=== PATIENT | male | born 1965 | race Caucasian/White ===

== ENCOUNTER 2022-07-19 13:06 | Emergency (ER) | payer OTHER, SELFPAY ==
--- NOTE | ~2022-07-19 | CT_ITS ---
EXAMINATION: CT HEAD WITHOUT CONTRAST CLINICAL INFORMATION: Severe headache. COMPARISON: None available. TECHNIQUE: Contiguous axial imaging was performed from the skull base to vertex without intravenous administration of contrast. This CT examination was performed using dose optimization techniques as appropriate, variously including the following: *Automated exposure control *Adjustment of mA and/or kV according to patient size (this includes techniques or standardized protocols for targeted exams where dose is matched to indication/reason for exam; i.e. extremities or head) *Use of iterative reconstruction technique DLP: 793 mGy-cm FINDINGS: No intracranial hemorrhage, large infarction, or mass lesion is seen. No extra-axial collection is appreciated. The ventricles are normal in size and configuration without evidence of hydrocephalus. Mucosal thickening involving virtually all paranasal sinuses. Mucosal polyp versus retention cyst involving the left sphenoid sinus. The mastoid air cells are clear. CT/CT head/brain wo IV con IMPRESSION: No acute intracranial finding. Paranasal sinus disease as described.
[2022-07-19 13:10] VITALS: BP 169/95; PULSE 68; RESP 19; TEMP 36.6; O2SAT 98; BMI 33.2
--- NOTE | 2022-07-19 13:12 | ED_ITS ---
HPI - Headache General Chief Complaint: Headache <ANDREIA Lopez - Last Filed: 07/19/22 13:14> Stated Complaint: Severe headache 4days/Stiff neck/Light sensitivit <ANDREIA Lopez - Last Filed: 07/19/22 13:14> Time Seen by Provider: 07/19/22 16:11 <ANDREIA Lopez - Last Filed: 07/19/22 13:14> Source: patient and other (Girlfriend, Odette) <Richard Oreilly MD - Last Fi led: 07/19/22 20:15> Mode of arrival: ambulatory <Richard Oreilly MD - Last Filed: 07/19/22 20:15> Limitations: no limitations <Richard Oreilly MD - Last Filed: 07/19/22 20:15> History of Present Illness HPI Narrative: 57-year-old male who presents emergency department for evaluation of a headache, stiff neck, photophobia and phonophobia x4 days. The patient states that the headache came on gradually 4 days prior. He does not remember what he was doing at the time of onset. He states that the pain became progressively worse and is been a constant, pressure-like pain. He describes as a cap wrapped around his forehead and crown, tightness like sensation. He states that over the past 2 days he has had a stiff neck. The patient has had photophobia and ph onophobia. He states that last night after eating he did developed nausea with no vomiting. He states that he may have had some chills last night. He did become diaphoretic last night as well. Patient states he has been having some difficulty with seasonal allergies over the last month and has been taking Zyrtec and Mucinex. He states that while he was driving yesterday he did become slightly confused which is unusual for him. He denied rhinorrhea, sore throat, cough, chest pain, shortness of breath, dyspnea on exertion, myalgias arthralgias. The patient does not have a history of migraine headaches he states that he rarely gets headaches. <Richard Oreilly MD - Last Filed: 07/19/22 20:15> Related Data Home Medications: Previous Rx's Medication Instructions Recorded metoclopramide HCl 10 mg tablet 10 mg PO Q6H PRN nausea and 07/19/22 (Reglan) vomiting #14 tabs <ANDREIA Lopez - Last Filed: 07/19/22 13:14> Allergies/Adverse Reactions: Allergies Allergy/AdvReac Type Severity Reaction Status Date / Time Iodinated Contrast Media Allergy Shortness Verified 07/19/22 13:10 [IV Contrast Dye] of Breath Sulfa (Sulfonamide Allergy Hives Verified 07/19/22 13:09 Antibiotics) <ANDREIA Lopez - Last Filed: 07/19/22 13:14> Review of Systems Review of Systems: Yes all other systems are reviewed and are negative <Richard Oreilly MD - Last Filed: 07/19/22 20:15> [facility] Past Medical History [facility] Narrative: Past medical history: Restless leg syndrome, depression, seizure 3 years prior while he was having his hip operated on, he states that he had a workup that may have shown some temporal lobe slowing. Osteoarthritis Past surgical history: Bilateral hip replacements. Bilateral meniscus surgeries. Tonsillectomy. 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 He states he currently works for a [email or web address]. He is here with his girlfriend Odette. He denies tobacco, alcohol and drug use. <Richard Oreilly MD - Last Filed: 07/19/22 20:15> Social History Social History: Social History Advance Directives: No Advance Directives Information Provided: No <ANDREIA Lopez - Last Filed: 07/19/22 13:14> Physical Exam Vital Signs: Vital Signs: Last Vital Signs Temp 98.4 F 07/19/22 19:57 Pulse 62 07/19/22 19:57 Resp 16 07/19/22 19:57 BP 140/84 H 07/19/22 19:57 Pulse Ox 98 07/19/22 19:57 O2 Del Method Room Air 07/19/22 19:57 BMI result Body Mass Index 33.2 <ANDREIA Lopez - Last Filed: 07/19/22 13:14> Vital Signs: Last Vital Signs Temp 98.4 F 07/19/22 19:57 Pulse 62 07/19/22 19:57 Resp 16 07/19/22 19:57 BP 140/84 H 07/19/22 19:57 Pulse Ox 98 07/19/22 19:57 O2 Del Method Room Air 07/19/22 19:57 BMI result Body Mass Index 33.2 <Richard Oreilly MD - Last Filed: 07/19/22 20:15> Const: General: cooperative and no acute distress <Richard Oreilly MD - Last Filed: 07/19/22 20:15> Orientation/consciousness: oriented to person and oriented to place <Richard Oreilly MD - Last Filed: 07/19/22 20:15> Limitations: no limitations <Richard Oreilly MD - Last Filed: 07/19/22 20:15> HEENT: Head: Yes normal to inspection, Yes normocephalic and Yes atraumatic <Richard Oreilly MD - Last Filed: 07/19/22 20:15> Ears: external ears normal <Richard Oreilly MD - Last Filed: 07/19/22 20:15> General nose exam: Normal external nose present <Richard Oreilly MD - Last Filed: 07/19/22 20:15> Face and sinus: Yes normal facial exam <Richard Oreilly MD - Last Filed: 07/19/22 20:15> Mouth: Normal oral and palatal mucosa present <Richard Oreilly MD - Last Filed: 07/19/22 20:15> Throat: Yes posterior oropharynx normal <Richard Oreilly MD - Last Filed: 07/19/22 20:15> Eyes: General: appearance normal, both eyes and all related structures <Richard Oreilly MD - Last Filed: 07/19/22 20:15> Pupils: Equal, round and reactive pupils present <MD Jaden Seay Last Filed: 07/19/22 20:15> Neck: Neck: Yes normal visual inspection, Yes no lymphadenopathy, Yes trachea midline and Yes supple <Richard Oreilly MD - Last Filed: 07/19/22 20:15> Chest: Chest palpation & inspection: normal inspection of the chest and normal palpation of entire chest wall <Richard Oreilly MD - Last Filed: 07/19/22 20:15> Resp: Effort & Inspection: normal respiratory effort and able to speak in complete sentences <Richard Oreilly MD - Last Filed: 07/19/22 20:15> Auscultation: clear to auscultation bilaterally <Richard Oreilly MD - Last Filed: 07/19/22 20:15> Cardio: Rate: regular rate <Richard Oreilly MD - Last Filed: 07/19/22 20:15> Rhythm: regular rhythm <MD Jaden Seay Last Filed: 07/19/22 20:15> Heart sounds: S1 normal heart sound present, S2 normal heart sound present and no murmurs <Richard Oreilly MD - Last Filed: 07/19/22 20:15> GI: Inspection: Yes normal to inspection <Richard Oreilly MD - Last Filed: 07/19/22 20:15> Palpation (GI): Soft to palpation, nontender and no guarding <Richard Oreilly MD - Last Filed: 07/19/22 20:15> Auscultation: normal bowel sounds <MD Jaden Seay Last Filed: 07/19/22 20:15> : General: Yes no CVA tenderness <Richard Oreilly MD - Last Filed: 07/19/22 20:15> Back/Spine/Pelvis: Back: no CVA tenderness <Richard Oreilly MD - Last Filed: 07/19/22 20:15> Skin: General skin exam: no rashes or lesions noted <MD Jaden Seay Last Filed: 07/19/22 20:15> Neuro: General: oriented to person and oriented to place <MD Jaden Seay Last Filed: 07/19/22 20:15> Cranial nerves: Yes CN's II-XII intact bilaterally and Yes Equal, round and reactive pupils present <MD Jaden Seay Last Filed: 07/19/22 20:15> Cognition (Neuro): normal cognition <Richard Oreilly MD - Last Filed: 07/19/22 20:15> Motor exam (neuro): 5/5 motor strength present throughout <Richard Oreilly MD - Last Filed: 07/19/22 20:15> Extrem: General: Yes normal to inspection <Richard Oreilly MD - Last Filed: 07/19/22 20:15> Psych: Appearance: grossly normal <Richard Oreilly MD - Last Filed: 07/19/22 20:15> Speech and movement: Normal speech and movement present <Richard Oreilly MD - Last Filed: 07/19/22 20:15> Affect: normal affect <Richard Oreilly MD - Last Filed: 07/19/22 20:15> Attitude: cooperative <Richard Oreilly MD - Last Filed: 07/19/22 20:15> Thought process: Normal thought process present <Richard Oreilly MD - Last Filed: 07/19/22 20:15> Thought content: Normal thought content present <Richard Oreilly MD - Last Filed: 07/19/22 20:15> Course Course Course Narrative: RME - 57 yo male presents to the ER with 4 days of severe headache associated with light sensitivity and a stiff neck. Also reports some nausea. States the headache is the worst he has ever had in his life. Appears well in triage. Plan: lab workup, COVID swab, and CT head <ANDREIA Lopez - Last Filed: 07/19/22 13:14> Medications Administered Discontinued Medications Generic Name Dose Route Start Last Admin Trade Name Freq PRN Reason Stop Dose Admin Diphenhydramine HCl 50 mg 07/19/22 17:56 07/19/22 18:07 Diphenhydramine Hcl 50 Mg/Ml Vial IVPUSH 07/19/22 17:57 50 mg ONCE STA Administration Sodium Chloride 1,000 mls @ 999 mls/hr 07/19/22 17:56 07/19/22 18:06 Ns IV 07/19/22 18:56 999 mls/hr .Q1H1M STA Administration Ketorolac Tromethamine 30 mg 07/19/22 17:56 07/19/22 18:06 Ketorolac Tromethamine 15 Mg/Ml Vial IVPUSH 07/19/22 17:57 30 mg ONCE STA Administration Metoclopramide HCl 10 mg 07/19/22 17:56 07/19/22 18:07 Metoclopramide Hcl 10 Mg/2 Ml Vial IVPUSH 07/19/22 17:57 10 mg ONCE STA Administration Ondansetron HCl 4 mg 07/19/22 18:18 07/19/22 18:19 Ondansetron Hcl 4 Mg/2 Ml Vial IVPUSH 07/19/22 18:19 4 mg ONCE ONE Administration <ANDREIA Lopez - Last Filed: 07/19/22 13:14> Medications Administered Discontinued Medications Generic Name Dose Route Start Last Admin Trade Name Freq PRN Reason Stop Dose Admin Diphenhydramine HCl 50 mg 07/19/22 17:56 07/19/22 18:07 Diphenhydramine Hcl 50 Mg/Ml Vial IVPUSH 07/19/22 17:57 50 mg ONCE STA Administration Sodium Chloride 1,000 mls @ 999 mls/hr 07/19/22 17:56 07/19/22 18:06 Ns IV 07/19/22 18:56 999 mls/hr .Q1H1M STA Administration Ketorolac Tromethamine 30 mg 07/19/22 17:56 07/19/22 18:06 Ketorolac Tromethamine 15 Mg/Ml Vial IVPUSH 07/19/22 17:57 30 mg ONCE STA Administration Metoclopramide HCl 10 mg 07/19/22 17:56 07/19/22 18:07 Metoclopramide Hcl 10 Mg/2 Ml Vial IVPUSH 07/19/22 17:57 10 mg ONCE STA Administration Ondansetron HCl 4 mg 07/19/22 18:18 07/19/22 18:19 Ondansetron Hcl 4 Mg/2 Ml Vial IVPUSH 07/19/22 18:19 4 mg ONCE ONE Administration <Richard Oreilly MD - Last Filed: 07/19/22 20:15> Medical Decision Making Medical Decision Making MDM Narrative: 57-year-old male who presents emergency department for evaluation of 4 days of headache associated with phonophobia and photophobia, 2 days of stiff neck, nausea which started yesterday and 1 episode of confusion yesterday while driving. Patient's vital signs did reveal elevated blood pressure of 165/95 otherwise were unremarkable. Patient's physical examination was normal, he had no nuchal rigidity, his neurologic exam was nonfocal, it no tenderness palpation over his sinuses or over his temporal regions. Patient had a laboratory evaluation and CT scan of the brain which was ordered by provider in triage. My interpretation of these results is as follows: CBC was normal with a WBC of 8500 with a normal differential. CMP revealed Glucose elevated 119. COVID-[address] scan of the brain revealed no acute findings with some paranasal sinus disease. 1842: The patient's presentation is consistent with either an acute migraine syndrome or viral meningitis. I do not think that the patient had acute subarachnoid bleed as the cause of symptoms given his description of the onset of his pain. I did discuss pain management and spinal tap with the patient any did agree to a spinal tap which was done at the bedside by me. Patient was treated with Reglan 10 mg IV, Benadryl 50 mg IV and Toradol 30 mg IV. He was also ordered to get normal saline x1 L. 2008: My interpretation of the patient's spinal fluid: WBC 0, RBCs 3, glucose normal, total protein normal, color was clear and colorless. This is an unremarkable spinal tap suggesting the does not have spinal meningitis. Patient's sedimentation rate was also normal ruling out temporal arteritis. Patient most likely has a migraine-like syndrome and I did discuss this with him. Patient's pain did improved to 5/10 with the above treatment but does not want any more medications. He was discharged home with a regimen of Reglan 10 mg, Benadryl 50 mg Excedrin migraine 2 tablets every 6 hours as needed for headache. <Richard Oreilly MD - Last Filed: 07/19/22 20:15> Differential Diagnosis Differential diagnosis includes but is not limited to bacterial meningitis, viral meningitis, migraine syndrome, subarachnoid bleed, temporal arteritis, viral syndrome <Richard Oreilly MD - Last Filed: 07/19/22 20:15> Lab Data [facility] Lab Attestation statement: I reviewed the patient's lab results. <Richard Oreilly MD - Last Filed: 07/19/22 20:15> Please see [facility] for discussion <Richard Oreilly MD - Last Filed: 07/19/22 20:15> Result Diagrams: 07/19/22 13:18 07/19/22 13:18 <ANDREIA Lopez - Last Filed: 07/19/22 13:14> Labs: Lab Results 07/19/22 07/19/22 07/19/22 Range/Units 13:18 13:18 13:18 WBC 8.5 (4.8-10.8) X10*3/uL RBC 5.17 (4.60-5.80) X10*6/uL Hgb 15.7 (14.0-18.0) g/dl Hct 46.9 (42.0-52.0) % MCV 90.7 (80.0-98.0) fL MCH 30.4 (27.0-33.0) pg MCHC 33.5 (31.0-36.0) g/dl RDW 12.8 (11.0-16.0) % Plt Count 275 (160-400) X10*3/uL MPV 9.0 L (9.4-12.4) fL Immature Gran % (Auto) 0.6 H (0.0-0.4) % Neut % (Auto) 64.6 (45-73) % Lymph % (Auto) 22.2 (20-40) % Hart % (Auto) 8.6 (2-11) % Eos % (Auto) 3.3 (0-4) % Baso % (Auto) 0.7 (0-2) % Lymph # (Auto) 1.9 (1.2-4.9) X10*3/uL Hart # (Auto) 0.7 (0.1-1.2) X10*3/uL Eos # (Auto) 0.3 (0.0-0.4) X10*3/uL Baso # (Auto) 0.1 (0.0-0.2) X10*3/uL Abs Immat Gran (auto) 0.05 H (0.00-0.03) X10*3/uL Absolute Neuts (auto) 5.5 (2.0-8.3) x10*3/uL Absolute Nucleated RBC 0.000 (0.0-0.012) X10*3/uL Nucleated RBC % (auto) 0.0 (0.0-0.2) /100WBC ESR (0-15) MM/HR Sodium 140 (135-145) mmol/L Potassium 4.9 (3.3-5.1) mmol/L Chloride 104 (96-108) mmol/L Carbon Dioxide 29 (22-29) mmol/L Anion Gap 12 (12-20) BUN 18 H (9-16) mg/dL Creatinine 0.96 (0.5-1.4) mg/dL Estim Creat Clear Calc 101.1 Estimated GFR > 60 Random Glucose 119 H (60-115) mg/dL Calcium 9.9 (8.4-10.2) mg/dL Magnesium 2.1 (1.6-2.6) mg/dL Total Bilirubin 0.6 (0.0-1.0) mg/dL Direct Bilirubin < 0.2 (0.0-0.5) mg/dL AST 21 (5-37) U/L ALT 17 (0-40) U/L Alkaline Phosphatase 84 (39-117) U/L Total Protein 6.8 (6.5-8.0) g/dL Albumin 4.2 (3.5-5.0) g/dL CSF Tube Number CSF Volume ML CSF Appearance CSF Color CSF WBC MM*3 CSF RBC MM*3 CSF Neutrophils % CSF Lymphocytes % CSF Monocytes % % CSF Other Cells % % CSF Appearance (b) CSF Glucose mg/dL CSF Total Protein (15-45) mg/dL COVID-19 (CAROL) Negative (Negative) COVID-19 Clin Com See Note 07/19/22 07/19/22 07/19/22 Range/Units 13:18 18:32 18:32 WBC (4.8-10.8) X10*3/uL RBC (4.60-5.80) X10*6/uL Hgb (14.0-18.0) g/dl Hct (42.0-52.0) % MCV (80.0-98.0) fL MCH (27.0-33.0) pg MCHC (31.0-36.0) g/dl RDW (11.0-16.0) % Plt Count (160-400) X10*3/uL MPV (9.4-12.4) fL Immature Gran % (Auto) (0.0-0.4) % Neut % (Auto) (45-73) % Lymph % (Auto) (20-40) % Hart % (Auto) (2-11) % Eos % (Auto) (0-4) % Baso % (Auto) (0-2) % Lymph # (Auto) (1.2-4.9) X10*3/uL Hart # (Auto) (0.1-1.2) X10*3/uL Eos # (Auto) (0.0-0.4) X10*3/uL Baso # (Auto) (0.0-0.2) X10*3/uL Abs Immat Gran (auto) (0.00-0.03) X10*3/uL Absolute Neuts (auto) (2.0-8.3) x10*3/uL Absolute Nucleated RBC (0.0-0.012) X10*3/uL Nucleated RBC % (auto) (0.0-0.2) /100WBC ESR 5 (0-15) MM/HR Sodium (135-145) mmol/L Potassium (3.3-5.1) mmol/L Chloride (96-108) mmol/L Carbon Dioxide (22-29) mmol/L Anion Gap (12-20) BUN (9-16) mg/dL Creatinine (0.5-1.4) mg/dL Estim Creat Clear Calc Estimated GFR Random Glucose (60-115) mg/dL Calcium (8.4-10.2) mg/dL Magnesium (1.6-2.6) mg/dL Total Bilirubin (0.0-1.0) mg/dL Direct Bilirubin (0.0-0.5) mg/dL AST (5-37) U/L ALT (0-40) U/L Alkaline Phosphatase (39-117) U/L Total Protein (6.5-8.0) g/dL Albumin (3.5-5.0) g/dL CSF Tube Number 2 4 CSF Volume 2.5 ML CSF Appearance CLEAR CSF Color COLORLESS CSF WBC 0 MM*3 CSF RBC 3 MM*3 CSF Neutrophils 0 % CSF Lymphocytes 0 % CSF Monocytes % 0 % CSF Other Cells % 0 % CSF Appearance (b) Clear, Colorless CSF Glucose 64 mg/dL CSF Total Protein 44.1 (15-45) mg/dL COVID-19 (CAROL) (Negative) COVID-19 Clin Com <ANDREIA Lopez - Last Filed: 07/19/22 13:14> Lab Results 07/19/22 07/19/22 07/19/22 Range/Units 13:18 13:18 13:18 WBC 8.5 (4.8-10.8) X10*3/uL RBC 5.17 (4.60-5.80) X10*6/uL Hgb 15.7 (14.0-18.0) g/dl Hct 46.9 (42.0-52.0) % MCV 90.7 (80.0-98.0) fL MCH 30.4 (27.0-33.0) pg MCHC 33.5 (31.0-36.0) g/dl RDW 12.8 (11.0-16.0) % Plt Count 275 (160-400) X10*3/uL MPV 9.0 L (9.4-12.4) fL Immature Gran % (Auto) 0.6 H (0.0-0.4) % Neut % (Auto) 64.6 (45-73) % Lymph % (Auto) 22.2 (20-40) % Hart % (Auto) 8.6 (2-11) % Eos % (Auto) 3.3 (0-4) % Baso % (Auto) 0.7 (0-2) % Lymph # (Auto) 1.9 (1.2-4.9) X10*3/uL Hart # (Auto) 0.7 (0.1-1.2) X10*3/uL Eos # (Auto) 0.3 (0.0-0.4) X10*3/uL Baso # (Auto) 0.1 (0.0-0.2) X10*3/uL Abs Immat Gran (auto) 0.05 H (0.00-0.03) X10*3/uL Absolute Neuts (auto) 5.5 (2.0-8.3) x10*3/uL Absolute Nucleated RBC 0.000 (0.0-0.012) X10*3/uL Nucleated RBC % (auto) 0.0 (0.0-0.2) /100WBC ESR (0-15) MM/HR Sodium 140 (135-145) mmol/L Potassium 4.9 (3.3-5.1) mmol/L Chloride 104 (96-108) mmol/L Carbon Dioxide 29 (22-29) mmol/L Anion Gap 12 (12-20) BUN 18 H (9-16) mg/dL Creatinine 0.96 (0.5-1.4) mg/dL Estim Creat Clear Calc 101.1 Estimated GFR > 60 Random Glucose 119 H (60-115) mg/dL Calcium 9.9 (8.4-10.2) mg/dL Magnesium 2.1 (1.6-2.6) mg/dL Total Bilirubin 0.6 (0.0-1.0) mg/dL Direct Bilirubin < 0.2 (0.0-0.5) mg/dL AST 21 (5-37) U/L ALT 17 (0-40) U/L Alkaline Phosphatase 84 (39-117) U/L Total Protein 6.8 (6.5-8.0) g/dL Albumin 4.2 (3.5-5.0) g/dL CSF Tube Number CSF Volume ML CSF Appearance CSF Color CSF WBC MM*3 CSF RBC MM*3 CSF Neutrophils % CSF Lymphocytes % CSF Monocytes % % CSF Other Cells % % CSF Appearance (b) CSF Glucose mg/dL CSF Total Protein (15-45) mg/dL COVID-19 (CAROL) Negative (Negative) COVID-19 Clin Com See Note 07/19/22 07/19/22 07/19/22 Range/Units 13:18 18:32 18:32 WBC (4.8-10.8) X10*3/uL RBC (4.60-5.80) X10*6/uL Hgb (14.0-18.0) g/dl Hct (42.0-52.0) % MCV (80.0-98.0) fL MCH (27.0-33.0) pg MCHC (31.0-36.0) g/dl RDW (11.0-16.0) % Plt Count (160-400) X10*3/uL MPV (9.4-12.4) fL Immature Gran % (Auto) (0.0-0.4) % Neut % (Auto) (45-73) % Lymph % (Auto) (20-40) % Hart % (Auto) (2-11) % Eos % (Auto) (0-4) % Baso % (Auto) (0-2) % Lymph # (Auto) (1.2-4.9) X10*3/uL Hart # (Auto) (0.1-1.2) X10*3/uL Eos # (Auto) (0.0-0.4) X10*3/uL Baso # (Auto) (0.0-0.2) X10*3/uL Abs Immat Gran (auto) (0.00-0.03) X10*3/uL Absolute Neuts (auto) (2.0-8.3) x10*3/uL Absolute Nucleated RBC (0.0-0.012) X10*3/uL Nucleated RBC % (auto) (0.0-0.2) /100WBC ESR 5 (0-15) MM/HR Sodium (135-145) mmol/L Potassium (3.3-5.1) mmol/L Chloride (96-108) mmol/L Carbon Dioxide (22-29) mmol/L Anion Gap (12-20) BUN (9-16) mg/dL Creatinine (0.5-1.4) mg/dL Estim Creat Clear Calc Estimated GFR Random Glucose (60-115) mg/dL Calcium (8.4-10.2) mg/dL Magnesium (1.6-2.6) mg/dL Total Bilirubin (0.0-1.0) mg/dL Direct Bilirubin (0.0-0.5) mg/dL AST (5-37) U/L ALT (0-40) U/L Alkaline Phosphatase (39-117) U/L Total Protein (6.5-8.0) g/dL Albumin (3.5-5.0) g/dL CSF Tube Number 2 4 CSF Volume 2.5 ML CSF Appearance CLEAR CSF Color COLORLESS CSF WBC 0 MM*3 CSF RBC 3 MM*3 CSF Neutrophils 0 % CSF Lymphocytes 0 % CSF Monocytes % 0 % CSF Other Cells % 0 % CSF Appearance (b) Clear, Colorless CSF Glucose 64 mg/dL CSF Total Protein 44.1 (15-45) mg/dL COVID-19 (CAROL) (Negative) COVID-19 Clin Com <Richard Oreilly MD - Last Filed: 07/19/22 20:15> Procedures Lumbar Puncture Time Out Performed: Yes <Richard Oreilly MD - Last Filed: 07/19/22 20:15> Patient Position: upright <Richard Oreilly MD - Last Filed: 07/19/22 20:15> Skin Prep: Povidone-Iodine 1% <Richard Oreilly MD - Last Filed: 07/19/22 20:15> Local Anesthetic: lidocaine 1% <Richard Oreilly MD - Last Filed: 07/19/22 20:15> Amount of anesthesia used (mL): 4 <Richard Oreilly MD - Last Filed: 07/19/22 20:15> Spinal Needle Gauge: 20G <Richard Oreilly MD - Last Filed: 07/19/22 20:15> Interspace Used: L4-L5 <Richard Oreilly MD - Last Filed: 07/19/22 20:15> Fluid Initially Obtained: clear <Richard Oreilly MD - Last Filed: 07/19/22 20:15> Complications: none <Richard Oreilly MD - Last Filed: 07/19/22 20:15> Additional Comments: Spinal fluid was obtained on the 1st attempt, the patient tolerated the procedure well, patient was advised to lie flat on his back for 1 hour. <Richard Oreilly MD - Last Filed: 07/19/22 20:15> Discharge Plan Discharge Clinical Impression: Migraine <ANDREIA Lopez - Last Filed: 07/19/22 13:14> Patient Disposition: Home, Self-Care <ANDREIA Lopez - Last Filed: 07/19/22 13:14> Instructions: Migraine Headache (ED) <ANDREIA Lopez - Last Filed: 07/19/22 13:14> Additional Instructions: Your blood work was unremarkable. Your sedimentation rate was normal. This makes temporal arteritis unlikely as the cause of your headache. Your spinal fluid was unremarkable as well, you had 0 white blood cells, 3 red blood cells, normal protein and normal glucose. With these normal values, it is very unlikely that you have a viral meningitis is the cause of your symptoms Your symptoms are consistent with a migraine. I want you to take the following 3 medications together every 6 hours as needed for headache, nausea or vomiting. Reglan (metoclopramide) in 10 mg, 1 pill Benadryl 25 mg, 2 pills Excedrin migraine, 2 pills. After you take these medications, lie down in a dark quiet room and try to fall asleep. These medications will make you sleepy, do not drive or work after taking these medications. Follow-up with your doctor in 2 days. Please return to the emergency department if your symptoms get worse or if you develop any symptoms that are concerning to you. <ANDREIA Lopez - Last Filed: 07/19/22 13:14> Prescriptions: New metoclopramide HCl [Reglan] 10 mg tablet 10 mg PO Q6H PRN (Reason: nausea and vomiting) Qty: 14 0RF <ANDREIA Lopez - Last Filed: 07/19/22 13:14>
[2022-07-19 13:23] LABS: MANUAL DIFF FLAG NO
[2022-07-19 13:26] LABS: Basophils Absolute Auto 0.1 X10*3/uL (0.0-0.2); Basophils Percent Auto 0.7 % (0-2); Eosinophils Absolute Auto 0.3 X10*3/uL (0.0-0.4); Eosinophils Percent Auto 3.3 % (0-4); Hematocrit 46.9 % (42.0-52.0); Hemoglobin 15.7 g/dl (14.0-18.0); Imm Gran Abs Auto 0.05 X10*3/uL (0.00-0.03); Imm Gran Pct Auto 0.6 % (0.0-0.4); Lymphocytes Absolute Auto 1.9 X10*3/uL (1.2-4.9); Lymphocytes Percent Auto 22.2 % (20-40); Mean Corpuscular HGB Conc 33.5 g/dl (31.0-36.0); Mean Corpuscular Hemoglobin 30.4 pg (27.0-33.0); Mean Corpuscular Volume 90.7 fL (80.0-98.0); Monocytes Absolute Auto 0.7 X10*3/uL (0.1-1.2); Monocytes Percent Auto 8.6 % (2-11); Neutrophils Absolute Auto 5.5 x10*3/uL (2.0-8.3); Neutrophils Percent Auto 64.6 % (45-73); Platelet Count 275 X10*3/uL (160-400); Red Blood Count 5.17 X10*6/uL (4.60-5.80); Red Cell Distribution Width 12.8 % (11.0-16.0); White Blood Count 8.5 X10*3/uL (4.8-10.8)
[2022-07-19 13:39] LABS: Alanine Aminotransferase 17 U/L (0-40); Albumin Level 4.2 g/dL (3.5-5.0); Alkaline Phosphatase 84 U/L (39-117); Anion Gap 12 (12-20); Aspartate Amino Transferase 21 U/L (5-37); Bilirubin Direct < 0.2 mg/dL (0.0-0.5); Bilirubin Total 0.6 mg/dL (0.0-1.0); Blood Urea Nitrogen 18 mg/dL (9-16); Calcium 9.9 mg/dL (8.4-10.2); Carbon Dioxide 29 mmol/L (22-29); Chloride 104 mmol/L (96-108); Creatinine Clr Calc Pharmacy 101.1; Estimated Glomerular Filt Rate > 60; Glucose Random 119 mg/dL (60-115); Magnesium 2.1 mg/dL (1.6-2.6); Potassium 4.9 mmol/L (3.3-5.1); Sodium 140 mmol/L (135-145); Total Protein 6.8 g/dL (6.5-8.0)
[2022-07-19 13:48] LABS: COVID-19 Test Negative (Negative); IDNOW Serial# BCCEAD1C
--- NOTE | 2022-07-19 16:11 | PC.NURSE ---
Patient with 3 days of headache no history of migraine, AOx 4 neuros intact no distress noted. Patient ambulatory with steady independent gait. No recent rauma denies hypertension family member with patient will CTM
[2022-07-19 16:15] VITALS: BP 164/98; PULSE 69; RESP 18; TEMP 36.9; O2SAT 98
--- NOTE | 2022-07-19 17:35 | PC.NURSE ---
MD at bedside patient resting comfortably awaiting orders will CTM
[2022-07-19 18:00] VITALS: BP 143/88; PULSE 59; RESP 16; TEMP 36.7; O2SAT 98
[2022-07-19] MEDS: 0.9 % Sodium Chloride 1,000 ML 999 ML IV (18:06)
[2022-07-19] MEDS: Ketorolac Tromethamine 15 MG/ML VIAL 30 MG IVPUSH (18:06)
[2022-07-19] MEDS: diphenhydrAMINE HCL 50 MG/ML VIAL IVPUSH (18:07)
[2022-07-19] MEDS: Metoclopramide HCl 10 MG/2 ML VIAL IVPUSH (18:07)
--- NOTE | 2022-07-19 18:14 | PC.NURSE ---
MD spoke with patient patient decided to have bedside LP performed, MD aware will CTM
[2022-07-19] MEDS: ondansetron HCL 4 MG/2 ML VIAL IVPUSH (18:19)
--- NOTE | 2022-07-19 18:24 | PC.NURSE ---
MD at bedside performing LP will CTM
[2022-07-19 18:59] LABS: Erythrocyte Sedimentation Rate 5 MM/HR (0-15)
[2022-07-19 19:14] LABS: Glucose CSF 64 mg/dL; Total Protein CSF 44.1 mg/dL (15-45)
[2022-07-19 19:22] LABS: CSF Appearance Clear, Colorless; CSF Tube # 2
[2022-07-19 19:49] LABS: Appearance CSF CLEAR; CSF Tube # 4; Color CSF COLORLESS; White Blood Cell CSF 0 MM*3
[2022-07-19 19:50] LABS: Red Blood Cell CSF 3 MM*3
[2022-07-19 19:52] LABS: CSF Volume 2.5 ML
[2022-07-19 19:53] LABS: CSF Monos 0 %; CSF Other Cells % 0 %; Lymphocytes CSF 0 %; Neutrophils CSF 0 %
[2022-07-19 19:57] VITALS: BP 140/84; PULSE 62; RESP 16; TEMP 36.9; O2SAT 98
[2022-07-19 20:16] LABS: Cryptococcus neoformans/gattii Not Detected (Not Detect.); Enterovirus Not Detected (Not Detect.); Escherichia coli K1 Not Detected (Not Detect.); Haemophilus influenzae Not Detected (Not Detect.); Herpes simplex virus 1 Not Detected (Not Detect.); Herpes simplex virus 2 Not Detected (Not Detect.); Human herpesvirus 6 Not Detected (Not Detect.); Human parechovirus Not Detected (Not Detect.); Listeria monocytogenes Not Detected (Not Detect.); Neisseria meningitidis Not Detected (Not Detect.); Streptococcus agalactiae Not Detected (Not Detect.); Streptococcus pneumoniae Not Detected (Not Detect.); Varicella zoster virus Not Detected (Not Detect.)
== END 2022-07-19 20:24 | disposition home or self-care (01) ==
PROVIDERS: Physician Assistant; Emergency Provider Emergency Medicine Emergency Medical Services; PCP Internal Medicine
DX: G43.909 Migraine, unspecified, not intractable, without status migrainosus (principal); Z20.822 Contact with and (suspected) exposure to COVID-19; Z20.828 Contact with and (suspected) exposure to other viral communicable diseases; Z79.899 Other long term (current) drug therapy
CPT/HCPCS: 36415; 70450; 80048; 80076; 82945; 83735; 84157; 85025; 85652; 87015; 87070; 87205; 87483; 87635; 89051; 96361; 96374; 96375; 99284; J1200; J1885; J2405; J2765